=== PATIENT | female | born 1930 | race Caucasian/White ===

== ENCOUNTER → 2017-10-05 | Outpatient (REF) | payer OTHER, MEDICARE ==
[~2017-10-05] MED LIST: 0.910DIS20 IJ; ACE3 PO; ASPE325 PO; ASPI-1064 PO; ATR10 PO; DIA5 PO; LEVO50TA80 PO; LEVO75TA76 PO; MULT-1335 PO; NONE REPORTED; OMEP-153 PO; P EP PO; P-EP1CAP10 PO; PER PO; PHEN-556 PO
== END ==
LOC: ZZSENDIN 17:27
PROVIDERS: ATTEND Physician Assistant
DX: Z77.21 Contact with and (suspected) exposure to potentially hazardous body fluids (principal)
CPT/HCPCS: 86703; 86706; 86803

== ENCOUNTER 2018-06-08 01:17 | Day surgery (SDC) | payer MEDICARE, OTHER ==
[2018-06-08] VITALS (7 sets, daily range): BP systolic 126–177; BP diastolic 58–85
[~2018-06-08] VITALS: Ht 139.7 cm; Wt 53.5 kg
[~2018-06-08 01:17] MED LIST changes: +LISI20TA29 PO
[2018-06-08] MEDS ORDERED: PROPOFOL EMUL(*) 10MG/ML 20 ML 40 ML ONE (08:01)
[2018-06-08] MEDS ORDERED: LIDOCAINE MPF 1% 5 ML VIAL ONE (08:01)
[2018-06-08] MEDS ORDERED: NORMOSOL R SOLN(*) 1000 ML BAG 1,000 ML IV PRN (09:40)
[2018-06-08] MEDS ORDERED: LIDOCAINE/SOD BICARB 8.4% SYR ID ONE (09:40)
--- NOTE | 2018-06-08 11:13 | NUR ---
904 PT ARRIVED TO [place] VIA CART, SAFETY MAINTAINED, VSS, RESTING, DAUGHTER VICTOR M AT BEDSIDE. 914 VSS, STILL RESTING IN LEFT LAT POSITION, DOWN TO 2L MASK 929 DOWN TO ROOM AIR, DAUGHTER STEPPED OUT TO EAT BREAKFAST, WILL CALL HER WHEN PT IS READY IF SHE'S NOT BACK 0940 PT TOLERATING WATER AND APPLE SAUCE, 1013 ORTHOSTATICS STABLE, PT DENIES DIZZINESS, PT ALLOWED TO DRESS, CALLED DAUGHTER, D/C FROM IV TUBING 1015 DC INSTRUCTIONS COVERED WITH PT 1030 CALLED DAUGHTER AGAIN, ON HER WAY UP, INSTRUCTIONS COVERED WITH DAUGHTER, IV OUT, PRESSURE DRESSING APPLIED 1040 PT OUT TO CAR BY FOOT, USES CANE, STEADY ON FEET. ALL BELONGINGS WITH PT. SELF TRANSFERRED TO CAR OUTSIDE OF ADMISSIONS ENTRANCE 1047
== END 2018-06-08 10:47 | disposition home or self-care (01) ==
LOC: OR 01:17
PROVIDERS: ATTEND Family Medicine
DX: K64.4 Residual hemorrhoidal skin tags (principal); K57.30 Diverticulosis of large intestine without perforation or abscess without bleeding
CPT/HCPCS: 00811; 45378; J2001; J2704